=== PATIENT | female | born 1970 | race Caucasian/White ===

== ENCOUNTER → 2016-12-27 | Outpatient (CLI) | payer MEDICARE, OTHER ==
[~2016-12-27] MED LIST: ACETAMINOPHEN325 MG PO; BENADRYL PO; BENADRYL25 M1 PO; COUMADIN5 MG PO; COUMADIN6 MG PO; HYDROCODON-ACE1 EAC5 PO; LITHIUM CARBON300 M1 PO; LORTAB 7.5-5001 TAB PO; LOVENOX SUBQ; NICOTINE T1 PATCH .2 TOP; NO MEDICATIONS; PERCOCET10 PO; SENNA S TABLET1 TAB PO; VANCOMYCIN1.25 GM/21 IV; VANCOMYCIN1.25 GM/25 IV; XANAX0.5 MG PO; ZANTAC PO
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
[2016-12-27 12:04] LABS: HEMATOCRIT 46.8 % (35.0-45.0); HEMOGLOBIN 14.9 gm/dL (12.0-16.0); MEAN CELL VOLUME 81.4 FL (83-96); MEAN CORPUSCULAR HGB CONC 31.9 g/dL (30-36); MEAN PLATELET VOLUME 7.5 FL (6.5-11.5); RED BLOOD COUNT 5.75 X10e (3.90-5.30); RED CELL DISTRIBUTION WIDTH 14.4 % (11.0-15.5); WHITE BLOOD COUNT 6.6 X10e3 (4.0-10.5)
[2016-12-27 12:06] LABS: URINE APPEARANCE CLEAR; URINE BILIRUBIN NEG (NEG); URINE BLOOD 1+ (NEG); URINE COLOR YELLOW; URINE GLUCOSE NEG (NEG); URINE KETONE NEG (NEG); URINE LEUKOCYTE ESTERASE NEG (NEG); URINE NITRATE NEG (NEG); URINE PROTEIN NEG (NEG); URINE SPECIFIC GRAVITY 1.004 (1.003-1.035); URINE UROBILINOGEN 0.2 MG/DL (NEG)
[2016-12-27 12:09] LABS: URINE BACTERIA AUWI NEG (NEGATIVE); URINE SQUAMOUS EPITHELIAL CELL NONE SEEN /[HPF]; UWBCS1 AUWI 0-2 (0-5)
[2016-12-27 12:16] LABS: CULTURE INDICATED? NO; URINE SOURCE CLEAN CATCH
[2016-12-27 12:21] LABS: INR 0.9; PROTHROMBIN TIME (PATIENT) 9.4 SECONDS (9.6-11.5)
[2016-12-27 12:38] LABS: ALBUMIN SERUM 3.8 g/dL (3.5-5.0); BILIRUBIN,TOTAL 0.3 mg/dL (0.2-2.0); BUN/CREATININE RATIO 14.28; CALCIUM SERUM 9.5 mg/dL (8.4-10.2); CREATININE SERUM 0.7 mg/dL (0.6-1.4); GLOM FILT RATE Estimated 103.2 mL/min (>60); POTASSIUM 4.4 mmol/L (3.5-5.1)
== END | disposition home or self-care (01) ==
LOC: CAMB 11:23
PROVIDERS: Orthopaedic Surgery
DX: Z01.812 Encounter for preprocedural laboratory examination (principal); M25.362 Other instability, left knee; M25.562 Pain in left knee; K21.9 Gastro-esophageal reflux disease without esophagitis; F31.9 Bipolar disorder, unspecified; F20.9 Schizophrenia, unspecified; Z86.14 Personal history of Methicillin resistant Staphylococcus aureus infection; Z79.82 Long term (current) use of aspirin; Z85.41 Personal history of malignant neoplasm of cervix uteri; Z90.710 Acquired absence of both cervix and uterus
CPT/HCPCS: 36415; 80053; 81003; 85027; 85610; 85652; 86140; 86850; 86900; 86901; 87070

== ENCOUNTER 2017-01-05 08:37 | Inpatient (IN) | payer MEDICARE, OTHER ==
--- NOTE | ~2017-01-05 | DS ---
Unit #: [id number] #: [id number] Patient: YOGESH PATHAK [id number] [facility] [address] [facility]. [place], [place] [address] [id number] I MR#: [id number] NAME: YOGESH PATHAK ROOM: 450 Age: 46 Sex: F Admission Date: 01/05/2017 : 1970 Discharge Date: 01/07/2017 Attending Physician: Aniket Huggins M.D. Referring Physician: Aniket Huggins M.D. Primary Care Physician: No Primary Care Physician DISCHARGE SUMMARY CONSULT PHYSICIAN HIPS for medical management. REASON FOR ADMISSION Left knee pain and instability. PROCEDURE Revision left total knee with frozen section. HOSPITAL COURSE The patient was admitted to [facility] with a history of pain and instability of the left knee. The patient had undergone the above procedure. The patient tolerated the procedure well with no complications. Today, her temperature is 98.3, blood pressure 129/72. Heart rate is 99 and regular, respirations 20. Her incision is healing well. Neurovascular exam is intact. She has 2+ pulses in her lower extremity. The plan will be to discharge her home today under the care of [facility]. DISPOSITION Home with home health. PERTINENT LABS Her PT was 15.9. INR was 1.5. Hemoglobin was 10.3. MEDICATIONS Per medication reconciliation list. She will be on her regular home medications. The addition will be Coumadin 2 mg today and then 7 mg daily. She will also get a dose of Lovenox prior to discharge. She will be hydrocodone for pain control. FOLLOWUP INSTRUCTIONS 1. The patient will be following up with Dr. Huggins on 02/15/2017. 2. The patient will participate in physical therapy including active, active assist, range of motion, strengthening, progressive ambulation, begin with a walker, progress to a cane as tolerated. 3. The patient will wear FREDY hose during the day and off at night. 4. The patient should not drive until seen by Dr. Huggins. Dictated by... Ramón Be P.A.-C- for Aniket Huggins M.D. Unit #: [id number] #: [id number] Patient: YOGESH PATHAK KF/bd TD: 01/07/2017 07:40 JOB #: [id number] DISCHARGE SUMMARY Page 1 of 1 X X DISCHARGE SUMMARY
--- NOTE | ~2017-01-05 | OR ---
Unit #: [id number] #: [id number] Patient: YOGESH PATHAK [id number] [address] [place], [place] [address] [id number] I MR#: [id number] NAME: YOGESH PATHAK ROOM: 450 Date of Procedure: 01/05/2017 Admission Date: 01/05/2017 Surgeon: Aniket Huggins M.D. : 1970 Attending Physician: Aniket Huggins M.D. Referring Physician: Aniket Huggins M.D. OPERATIVE REPORT PREOPERATIVE DIAGNOSIS Flexion instability, left knee. POSTOPERATIVE DIAGNOSIS Flexion instability, left knee. PROCEDURE PERFORMED Revision, left total knee. ASSISTANTS Bev Upton and Maggie Chavarria. ANESTHESIA Adductor canal block plus general. ESTIMATED BLOOD LOSS About 150 to 200 mL. DESCRIPTION OF PROCEDURE The patient was brought to the holding room, given appropriate IV antibiotics. She was then given an adductor canal block, brought back to the operating room, given general anesthetic. Tourniquet was placed around the left leg. Left leg was prepped and draped in a sterile fashion. Tourniquet was inflated to 250. The previous anterior skin incision was used. Subcu dissected away and a medial arthrotomy was performed. Patella was slid to the side. Clear fluid was encountered. This was cultured. After this was done, the patient then had the polyethylene removed from the previous tibial tray. The femoral component was removed using a 0.5-inch straight osteotome to loosen the bone-cement interface. After this was removed, the tibia was subluxed anteriorly and the tibial component was removed. We then removed any remaining cement from the tibial canal. We then reamed the tibia up to a 12 x 75. A conical reamer was used for the MBT sleeve. Broaches were used up to a 45 and then the tibia was sized at a 2.5. The femur was sized at a 3. The patient then had the reamers used up to a 14 x 75. The conical reamer was used for the [place] femoral sleeve and then the femur was re-cut, chamfer cuts, and the box cut for the TC3 size 3 femoral component. The trial femur was assembled and applied and then the knee was reduced, was found a 12.5 RP insert was the appropriate thickness. This patient then had the patella examined and it appeared that the patellar component was loose. This was removed and the patient then had the patella measured, cut smooth, and then the three drill holes were made for a size 35 Unit #: [id number] #: [id number] Patient: YOGESH PATHAK patella. All the components were opened. The knee was irrigated and dried and the patient then had the components assembled. Two packages of cement were mixed. The tibia was impacted first cementing under the tray only. Once again, it was a 2.5 tray on a 45 mm MBT sleeve with a 12 x 75 stem and the femur was impacted in the appropriate external rotation. Once again, it was a size 3 TC3 femur with a 14 x 75 stem, 5 degree offset bolt, and a 34 mm distally porous-coated sleeve. Finally, the patella was cemented into place. This was a size 35. After the cement was hardened, it was judged that the 12.5 insert was the appropriate thickness. This was opened and applied to the tibial tray. The knee was reduced and then the wound was irrigated with Betadine and bacitracin. The ropivacaine mixture was injected and then the knee was closed over a drain using 0 Ethibond in the arthrotomy, 0 and 2-0 Vicryl in the subcutaneous, and celestino in the skin. Sterile dressing was applied and the patient's general anesthetic reversed. research assistant professor, Bev Upton was present throughout the entire case. Dictated by... Kai Jaeger/melinda TD: 01/10/2017 22:10 JOB #: [id number] OPERATIVE REPORT Page 1 of 1 X Aniket Huggins MD X PROCEDURE OPERATIVE NOTE
[~2017-01-05 08:37] MED LIST changes: -COUMADIN5 MG PO; -PERCOCET10 PO; -VANCOMYCIN1.25 GM/21 IV; -VANCOMYCIN1.25 GM/25 IV
[2017-01-05 09:26] LABS: INR 0.9; PROTHROMBIN TIME (PATIENT) 9.7 SECONDS (9.6-11.5)
[2017-01-06 03:02] LABS: HEMATOCRIT 32.7 % (35.0-45.0); HEMOGLOBIN 10.5 gm/dL (12.0-16.0); MEAN CELL VOLUME 79.8 FL (83-96); MEAN CORPUSCULAR HEMOGLOBIN 25.6 PG (28-34); MEAN CORPUSCULAR HGB CONC 32.1 g/dL (30-36); MEAN PLATELET VOLUME 7.1 FL (6.5-11.5); RED BLOOD COUNT 4.1 X10e (3.90-5.30); RED CELL DISTRIBUTION WIDTH 14.4 % (11.0-15.5)
[2017-01-06 03:50] LABS: BUN/CREATININE RATIO 16.25; CALCIUM SERUM 8.4 mg/dL (8.4-10.2); CREATININE SERUM 0.8 mg/dL (0.6-1.4); GLOM FILT RATE Estimated 87.9 mL/min (>60); POTASSIUM 4.3 mmol/L (3.5-5.1)
[2017-01-06 15:02] LABS: HEMATOCRIT 31.5 % (35.0-45.0); HEMOGLOBIN 10.1 gm/dL (12.0-16.0); MEAN CELL VOLUME 80.8 FL (83-96); MEAN CORPUSCULAR HEMOGLOBIN 25.8 PG (28-34); MEAN CORPUSCULAR HGB CONC 31.9 g/dL (30-36); MEAN PLATELET VOLUME 7.4 FL (6.5-11.5); RED BLOOD COUNT 3.9 X10e (3.90-5.30); RED CELL DISTRIBUTION WIDTH 14.6 % (11.0-15.5); WHITE BLOOD COUNT 15.3 X10e3 (4.0-10.5)
[2017-01-07 04:07] LABS: INR 1.5; PROTHROMBIN TIME (PATIENT) 15.9 SECONDS (9.6-11.5)
[2017-01-07 04:11] LABS: HEMATOCRIT 31.7 % (35.0-45.0); HEMOGLOBIN 10.3 gm/dL (12.0-16.0)
[2017-01-07] MEDS ORDERED: HYDROCODON-ACE1 EAC5 PO (10:53)
[2017-01-07] MEDS ORDERED: COUMADIN5 MG PO (10:54)
== END 2017-01-07 11:56 | disposition home health service (06) | DRG 467 ==
LOC: CSUR 08:37 → CPACUOF 09:00 → C4B 17:08
PROVIDERS: Internal Medicine; Nurse Practitioner; Orthopaedic Surgery
PROC: 0SPD09Z Removal of Liner from Left Knee Joint, Open Approach (ICD-10-PCS; 2017-01-05)
PROC: 0SPD0JZ Removal of Synthetic Substitute from Left Knee Joint, Open Approach (ICD-10-PCS; 2017-01-05)
PROC: 0SUW09Z Supplement Left Knee Joint, Tibial Surface with Liner, Open Approach (ICD-10-PCS; 2017-01-05)
PROC: 0SRD0J9 Replacement of Left Knee Joint with Synthetic Substitute, Cemented, Open Approach (ICD-10-PCS; principal; 2017-01-05 10:30)
DX: T84.023A Instability of internal left knee prosthesis, initial encounter (principal); D62 Acute posthemorrhagic anemia; F20.9 Schizophrenia, unspecified; E04.9 Nontoxic goiter, unspecified; F41.9 Anxiety disorder, unspecified; K21.9 Gastro-esophageal reflux disease without esophagitis; K44.9 Diaphragmatic hernia without obstruction or gangrene; F17.210 Nicotine dependence, cigarettes, uncomplicated; Z90.49 Acquired absence of other specified parts of digestive tract; Z90.710 Acquired absence of both cervix and uterus; Z86.14 Personal history of Methicillin resistant Staphylococcus aureus infection; Z85.41 Personal history of malignant neoplasm of cervix uteri; G25.81 Restless legs syndrome; R73.9 Hyperglycemia, unspecified
CPT/HCPCS: 80048; 82947; 85014; 85018; 85027; 85610; 87070; 87075; 87205; 88300; 88305; 88312; 88331; 94760; 97110; 97116; 97163; 97530; C1713; C1776; G8978-GP; G8979-GP; J0131; J0171; J0690; J0735; J1100; J1170; J1200; J1650; J1885; J2250; J2405; J2795; J3010; J3370

== ENCOUNTER 2017-01-11 18:29 | Inpatient (IN) | payer MEDICARE, OTHER ==
--- NOTE | ~2017-01-11 | CR169 ---
[facility] A Service of [facility] RADIOLOGY TEXT RESULTS PATIENT: YOGESH PATHAK LOCATION: [place] [address] : [birth year] UNIT #: [id number] AGE: [address]: Aniket Huggins MD SEX: F ORDER DR: [id number] [facility] [address] [place], [place] [address] [id number] I MR#: [id number] Acc #: [id number] NAME: YOGESH PATHAK. : 1970 SEX: F STUDY DATE/TIME: 01/11/2017 17:17 UNIT: [facility] ROOM: [facility] STUDY DESCRIPTION: CR Knee 2 Views Lt Attending Physician: Aniket Huggins M.D. Ordering Physician: [facility] MEDICAL IMAGING REPORT This report is preliminary unless electronic signature is present EXAM Left knee 01/11/2017 INDICATIONS 46-year-old female with pain and swelling of the left knee. Symptoms began 6 days ago. History of left knee surgery. TECHNIQUE 2 views of the left knee compared with 11/13/2012. FINDINGS Postop changes of total left knee replacement are present. Surgical hardware appears intact. There is prepatellar soft tissue swelling. There is a moderate-sized joint effusion which is nonspecific. This may reflect postoperative change. Infection also a differential consideration in the appropriate clinical context. Nonspecific calcifications are present about the medial and lateral knee joint spaces. No acute fracture. IMPRESSION 1. Total left knee replacement and evidence of recent surgical intervention. Soft tissue swelling and a nonspecific joint effusion. 2. No acute fracture. 3. If there is concern for infection, bone scan could be performed for further assessment. Dictated by... Dean Campos M.D. THIS IS AN ELECTRONICALLY VERIFIED REPORT Dean Campos M.D. at 01/11/2017 10:51 PM [facility] A Service of [facility] RADIOLOGY TEXT RESULTS PATIENT: YOGESH PATHAK LOCATION: [place] [address] : [birth year] UNIT #: [id number] AGE: [address]: Aniket Huggins MD SEX: F ORDER DR: PEPE/eva TD: 01/11/2017 22:10 JOB #: [id number] MEDICAL IMAGING REPORT Page 1 of 1 COPY
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
--- NOTE | ~2017-01-11 | EKG ---
PATIENT: YOGESH PATHAK UNIT #: [id number] Ventricular Rate: 85 BPM Atrial Rate: 85 BPM P-R Interval: 180 ms QRS Duration: 88 ms Q-T Interval: 350 ms QTC Calculation(Bezet): 416 ms P [place]: 40 degrees Calculated R [place]: 49 degrees Calculated T [place]: 18 degrees Diagnosis Line: Normal sinus rhythm Diagnosis Line: Normal ECG Diagnosis Line: When compared with ECG of 01-OCT-2016 13:26, Diagnosis Line: No significant change was found Diagnosis Line: Confirmed by REJI CARRILLO MD ([id number]) on 01/12/2017 Diagnosis Line: 10:40:22 PM INTERPRETING MD: LORENA SOUSA
--- NOTE | ~2017-01-11 | CO ---
Unit #: [id number] #: [id number] Patient: YOGESH PATHAK [id number] [address] [address] [id number] I MR#: [id number] NAME: YOGESH PATHAK ROOM: 475 Age: 46 Sex: F Admission Date: 01/12/2017 : 1970 Attending Physician: Aniket Huggins M.D. Primary Care Physician: Primary Care Physician No Consultation Date: 01/14/2017 CONSULTATION REPORT REASON FOR CONSULTATION Followup. DISCUSSION Ms. Parrish is a 46-year-old female, seen in room 475, bed 1 on 01/14/2017 at [facility]. The patient was calm, cooperative, compliant with medication. The patient still feeling sad, depressed, anxious, but denied any suicidal or homicidal ideation. Denied any psychotic symptom. Reports medication is helping her. The patient's vital signs; temperature 98.7, pulse 89, respirations 20, blood pressure 105/85, oxygen saturation 97%. MENTAL STATUS EXAMINATION General appearance, the patient dressed casually in hospital attire, sitting comfortably in chair, talking on the phone. The patient's attention span and concentration, fair. Speech, regular rate and coherent. Oriented in time, place, and person. Mood and affect, sad and dysphoric. Thought process was coherent. Thought content, the patient denied any thoughts of harming self or others. Denied any hallucination. Recent and remote memory, fair. Language, intact. Fund of knowledge, fair. Insight and judgment, fair to slightly impaired. DIAGNOSES 1. Major depressive disorder, recurrent, severe, F33.2. 2. Anxiety disorder, not otherwise specified, F40.01. ASSESSMENT AND PLAN 1. Supportive psychotherapy and psychoeducation provided to the patient. 2. Educated about benefits and side effects of medication and course and prognosis of illness. The patient's Ativan was switched to Xanax 1 mg t.i.d. If needed, consider further adjustment of medication. Please feel free to call if any questions, telephone #[phone]. Dictated by... Cristiano Millard M.D. KEVIN/melinda TD: 01/14/2017 23:29 JOB #: [id number] Unit #: [id number] #: [id number] Patient: YOGESH PATHAK CONSULTATION REPORT Page 1 of 1 X Cristiano Millard MD CONSULTATION REPORT
--- NOTE | ~2017-01-11 | DS ---
Unit #: [id number] #: [id number] Patient: YOGESH PATHAK [id number] [address] [place], [place] [address] [id number] I MR#: [id number] NAME: YOGESH APTHAK ROOM: [facility] Age: 46 Sex: F Admission Date: 01/12/2017 : 1970 Discharge Date: 01/16/2017 Attending Physician: Aniket Huggins M.D. Primary Care Physician: No Primary Care Physician DISCHARGE SUMMARY ADMITTING DIAGNOSIS Possible infected left total knee. DISCHARGE DIAGNOSIS Possible infected left total knee. PROCEDURES IN THE HOSPITAL I and D with poly exchange and placement of PICC line. HOSPITAL COURSE The patient was admitted on 01/11 through the emergency room. She had reportedly had positive blood cultures but these cultures have subsequently been no growth. She was taken to the OR and her knee was incised and drained with a poly exchange. These cultures also have been negative but, because of the possibility of infection, she will be treated empirically for four weeks with IV vancomycin. She is afebrile today. Her INR is 1.5 yesterday. She is on 5 mg of Coumadin daily. Her hemoglobin yesterday was 10.1 with a normal white count. Her medications at home are routine home medicines plus Coumadin 5 mg daily and Percocet 10/325 mg. Her condition on discharge is improved and her disposition is to home. Dictated by... Kai Jaeger/sherrill TD: 01/17/2017 11:13 JOB #: [id number] DISCHARGE SUMMARY Page 1 of 1 X Aniket Huggins MD X DISCHARGE SUMMARY
--- NOTE | ~2017-01-11 | OR ---
Unit #: [id number] #: [id number] Patient: YOGESH PATHAK [id number] [address] [place], [place] [address] [id number] I MR#: [id number] NAME: YOGESH PATHAK ROOM: [facility] Date of Procedure: 01/12/2017 Admission Date: 01/12/2017 Surgeon: Aniket Huggins M.D. : 1970 Attending Physician: Aniket Huggins M.D. OPERATIVE REPORT PREOPERATIVE DIAGNOSIS Possible infected left total knee. POSTOPERATIVE DIAGNOSIS Hematoma, left knee. NURSE CHEMICAL DEPENDENCY Alex. ANESTHESIA General. ESTIMATED BLOOD LOSS About 100 mL. PROCEDURE PERFORMED Incision and drainage and poly exchange. DESCRIPTION OF PROCEDURE The patient was brought to the operating room, given a general anesthetic. Her previous celestino were removed. The patient has been feeling ill. She has positive blood cultures for gram-positive cocci. Her knee is warm and swollen, but her surgery is only a week to 10 days out. She was brought down to the operating room. She was already on IV vancomycin 1750 mg every 12 hours. She was then given a general anesthetic. The previous celestino were removed. The knee was prepped and draped. The old incision was opened. Subcutaneous dissected away and the joint was entered. Fluid was encountered, but it did not appear infected. It appeared to be a resolving hematoma. There was hematoma in the knee. This was evacuated. The knee was then debrided as completely as possible. The tibia subluxed anteriorly. The polyethylene removed. The knee was irrigated with Betadine and bacitracin and then a new poly which was a size 3 TC3 12.5 mm thick insert was positioned in the tray. The knee reduced. The tourniquet released. The drain positioned and then the wound was closed using 0 Vicryl in the arthrotomy, 0 and 2-0 Vicryl in the subcutaneous, and celestino in the skin. Sterile dressing applied and the patient's general anesthetic reversed. Dictated by... Aniket Huggins M.D. Unit #: [id number] #: [id number] Patient: YOGESH PATHAK DLP/modl TD: 01/13/2017 03:38 JOB #: [id number] OPERATIVE REPORT Page 1 of 1 X Aniket Huggins MD PROCEDURE OPERATIVE NOTE
--- NOTE | ~2017-01-11 | XA166 ---
[facility] A Service of [facility] RADIOLOGY TEXT RESULTS PATIENT: YOGESH PATHAK LOCATION: [facility] 475-01 : [birth year] UNIT #: [id number] AGE: [address]: Aniket Huggins MD SEX: F ORDER DR: [id number] [facility] [address] [facility] [place], [place] [address] [id number] I MR#: [id number] Acc #: [id number] NAME: YOGESH PATHAK. : 1970 SEX: F STUDY DATE/TIME: 01/12/2017 14:53 UNIT: [facility] ROOM: [facility] STUDY DESCRIPTION: XA PICC Line Placement WO Port Attending Physician: Aniket Huggins M.D. Ordering Physician: Slava Boone M.D. Primary Care Physician: No Primary Care Physician MEDICAL IMAGING REPORT This report is preliminary unless electronic signature is present EXAM PICC placement with ultrasound and fluoroscopic guidance. HISTORY Venous access needed for medications. TECHNIQUE The procedure was explained to the patient including risks, benefits and complications. Informed consent was obtained and a formal time-out procedure was utilized. Full barrier sterile technique was employed via standard protocol. Using full barrier sterile technique and following local anesthesia with 1% Xylocaine, a brachial vein was punctured above the elbow on the right with ultrasound guidance. Ultrasound was used to confirm vessel patency which was confirmed and permanent ultrasound images were recorded. An 0.018 guidewire was passed into the superior vena cava under fluoroscopic guidance. A dilator and sheath was placed over the wire. A 5-Slovak double-lumen PICC was measured to 39 cm, cut and deployed with the tip positioned at the cavoatrial junction. The line was secured in place with adhesive dressing and antibiotic patch. Total fluoroscopy time 0.1 minutes with a total dose of 2 mGy. IMPRESSION Successful placement of a 5-Slovak double-lumen PICC via the right brachial vein above the elbow with ultrasound and fluoroscopic guidance. The tip of the PICC is in good position at the cavoatrial junction. Dictated by... Soren L. Juan Pablo, M.D. THIS IS AN ELECTRONICALLY VERIFIED REPORT Soren Almeida M.D. at 01/13/2017 10:23 PM RLF/jt [facility] A Service of [facility] RADIOLOGY TEXT RESULTS PATIENT: YOGESH PATHAK LOCATION: [place] [address] : [birth year] UNIT #: [id number] AGE: [address]: Aniket Huggins MD SEX: F ORDER DR: TD: 01/12/2017 18:22 JOB #: [id number] MEDICAL IMAGING REPORT Page 1 of 1 COPY
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
--- NOTE | ~2017-01-11 | CO ---
Unit #: [id number] #: [id number] Patient: YOGESH BOOKER [id number] [address] [address] [id number] I MR#: [id number] NAME: YOGESH BOOKER ROOM: 475 Age: 46 Sex: F Admission Date: 01/12/2017 : 1970 Attending Physician: Aniket Huggins M.D. Primary Care Physician: Primary Care Physician No Consultation Date: 01/15/2017 CONSULTATION REPORT REASON FOR CONSULTATION Followup. DISCUSSION Ms. Yogesh Booker is a 46-year-old female, seen in room 475, bed [address] [facility] on 01/15/2017. The patient reported having trouble with sleep, anxiety, depression. Denied any suicidal or homicidal ideation. Compliant with the treatment. The patient's vital signs; temperature 98.0, pulse 93, respirations 16, blood pressure 105/64. The patient denied any other complaints. Compliant with medication. REVIEW OF SYSTEMS Complete review of systems is unremarkable. MENTAL STATUS EXAMINATION General appearance; the patient dressed casually, lying comfortably in bed. Attention span and concentration, fair. Speech; regular rate, coherent. Oriented in time, place, and person. Mood and affect; sad, depressed, anxious. Thought process, coherent. Thought content; the patient denied any thoughts of harming self or others. Denied any psychotic symptom. Recent and remote memory, fair. Language, intact. Fund of knowledge, fair. Insight and judgment, fair to poor. DIAGNOSES Major depressive disorder, recurrent, severe, F33.2; anxiety disorder, not otherwise specified, F40.01. ASSESSMENT AND PLAN 1. Supportive psychotherapy and psychoeducation provided to the patient. 2. Educated about benefits and side effects of medication and course and prognosis of illness. Advised to continue with Xanax 1 mg t.i.d. If needed, consider medication such as Remeron. Please feel free to call if any questions, telephone #[phone]. Dictated by... Kai Au/melinda TD: 01/16/2017 14:18 JOB #: [id number] Unit #: [id number] #: [id number] Patient: YOGESH BOOKER CONSULTATION REPORT Page 1 of 1 X Cristiano Millard MD CONSULTATION REPORT
[2017-01-11 17:22] LABS: BASOPHIL# 0.1 X10e3 (0-0.3); BASOPHIL% 0.6 % (0-2.5); EOSINOPHIL# 0.3 X10e3 (0-0.7); EOSINOPHIL% 2.7 % (0.0-7.0); HEMATOCRIT 34.8 % (35.0-45.0); HEMOGLOBIN 11.2 gm/dL (12.0-16.0); LYMPHOCYTE# 3.3 X10e3 (1.0-3.5); LYMPHOCYTE% 28.4 % (17.0-45.0); MEAN CELL VOLUME 80.3 FL (83-96); MEAN CORPUSCULAR HEMOGLOBIN 25.8 PG (28-34); MEAN CORPUSCULAR HGB CONC 32.1 g/dL (30-36); MEAN PLATELET VOLUME 7.2 FL (6.5-11.5); MONOCYTE# 0.8 X10e3 (0-1.0); MONOCYTE% 7.1 % (3.0-12.0); NEUTROPHIL# 7.1 X10e3 (1.5-7.1); NEUTROPHIL% 61.2 % (40-75); PLATELET COUNT 543 X10e3 (140-420); RED BLOOD COUNT 4.34 X10e (3.90-5.30); RED CELL DISTRIBUTION WIDTH 14.4 % (11.0-15.5); WHITE BLOOD COUNT 11.7 X10e3 (4.0-10.5)
[2017-01-11 17:29] LABS: DIFF IND NO
[2017-01-11 17:36] LABS: INR 2.1; PARTIAL THROMBOPLASTIN TIME 45.4 SECONDS (23.5-31.3); PROTHROMBIN TIME (PATIENT) 22.8 SECONDS (9.6-11.5)
[2017-01-11 17:49] LABS: BUN/CREATININE RATIO 18.33; CALCIUM SERUM 8.6 mg/dL (8.4-10.2); CREATININE SERUM 0.6 mg/dL (0.6-1.4); GLOM FILT RATE Estimated 108.5 mL/min (>60)
[~2017-01-11 18:29] MED LIST changes: +COUMADIN5 MG PO
[2017-01-12 07:18] LABS: BASOPHIL% 0.6 % (0-2.5); EOSINOPHIL# 0.3 X10e3 (0-0.7); EOSINOPHIL% 3.2 % (0.0-7.0); HEMATOCRIT 28.2 % (35.0-45.0); LYMPHOCYTE# 2.2 X10e3 (1.0-3.5); LYMPHOCYTE% 28.3 % (17.0-45.0); MEAN CELL VOLUME 80.2 FL (83-96); MEAN CORPUSCULAR HEMOGLOBIN 26.2 PG (28-34); MEAN CORPUSCULAR HGB CONC 32.6 g/dL (30-36); MEAN PLATELET VOLUME 6.9 FL (6.5-11.5); MONOCYTE# 0.6 X10e3 (0-1.0); NEUTROPHIL# 4.7 X10e3 (1.5-7.1); NEUTROPHIL% 59.9 % (40-75); PLATELET COUNT 401 X10e3 (140-420); RED BLOOD COUNT 3.51 X10e (3.90-5.30); RED CELL DISTRIBUTION WIDTH 14.3 % (11.0-15.5); WHITE BLOOD COUNT 7.8 X10e3 (4.0-10.5)
[2017-01-12 07:27] LABS: HEMOGLOBIN 9.2 gm/dL (12.0-16.0)
[2017-01-12 07:28] LABS: DIFF IND NO
[2017-01-12 07:38] LABS: INR 1.4; PARTIAL THROMBOPLASTIN TIME 32.8 SECONDS (23.5-31.3); PROTHROMBIN TIME (PATIENT) 14.7 SECONDS (9.6-11.5)
[2017-01-12 07:50] LABS: BILIRUBIN,TOTAL 0.5 mg/dL (0.2-2.0); CALCIUM SERUM 8.4 mg/dL (8.4-10.2); CREATININE SERUM 0.5 mg/dL (0.6-1.4); GLOM FILT RATE Estimated 115.3 mL/min (>60); POTASSIUM 4.2 mmol/L (3.5-5.1); PROTEIN TOTAL SERUM 6.3 g/dL (6.0-8.3)
[2017-01-13 03:51] LABS: HEMATOCRIT 28.5 % (35.0-45.0); HEMOGLOBIN 9.3 gm/dL (12.0-16.0); MEAN CELL VOLUME 79.7 FL (83-96); MEAN CORPUSCULAR HEMOGLOBIN 25.9 PG (28-34); MEAN CORPUSCULAR HGB CONC 32.5 g/dL (30-36); MEAN PLATELET VOLUME 7.1 FL (6.5-11.5); RED BLOOD COUNT 3.58 X10e (3.90-5.30); RED CELL DISTRIBUTION WIDTH 14.1 % (11.0-15.5); WHITE BLOOD COUNT 10.9 X10e3 (4.0-10.5)
[2017-01-13 03:58] LABS: INR 1.1; PROTHROMBIN TIME (PATIENT) 11.4 SECONDS (9.6-11.5)
[2017-01-13 04:10] LABS: CALCIUM SERUM 8.1 mg/dL (8.4-10.2); CREATININE SERUM 0.5 mg/dL (0.6-1.4); GLOM FILT RATE Estimated 115.3 mL/min (>60); MAGNESIUM 1.9 mg/dL (1.6-3.0); POTASSIUM 3.8 mmol/L (3.5-5.1)
[2017-01-14 03:44] LABS: BASOPHIL# 0.1 X10e3 (0-0.3); BASOPHIL% 0.6 % (0-2.5); EOSINOPHIL# 0.3 X10e3 (0-0.7); EOSINOPHIL% 2.7 % (0.0-7.0); HEMATOCRIT 28.7 % (35.0-45.0); HEMOGLOBIN 9.4 gm/dL (12.0-16.0); LYMPHOCYTE# 2.4 X10e3 (1.0-3.5); LYMPHOCYTE% 25.5 % (17.0-45.0); MEAN CELL VOLUME 80.7 FL (83-96); MEAN CORPUSCULAR HEMOGLOBIN 26.4 PG (28-34); MEAN CORPUSCULAR HGB CONC 32.7 g/dL (30-36); MONOCYTE# 1.3 X10e3 (0-1.0); MONOCYTE% 13.4 % (3.0-12.0); NEUTROPHIL# 5.5 X10e3 (1.5-7.1); NEUTROPHIL% 57.8 % (40-75); PLATELET COUNT 487 X10e3 (140-420); RED BLOOD COUNT 3.56 X10e (3.90-5.30); RED CELL DISTRIBUTION WIDTH 14.3 % (11.0-15.5); WHITE BLOOD COUNT 9.5 X10e3 (4.0-10.5)
[2017-01-14 03:47] LABS: DIFF IND NO
[2017-01-14 03:55] LABS: INR 1.1; PROTHROMBIN TIME (PATIENT) 12.1 SECONDS (9.6-11.5)
[2017-01-14 04:34] LABS: CALCIUM SERUM 8.3 mg/dL (8.4-10.2); CREATININE SERUM 0.5 mg/dL (0.6-1.4); GLOM FILT RATE Estimated 115.3 mL/min (>60); MAGNESIUM 2.2 mg/dL (1.6-3.0)
[2017-01-15 03:33] LABS: HEMATOCRIT 31.2 % (35.0-45.0); HEMOGLOBIN 10.1 gm/dL (12.0-16.0); MEAN CELL VOLUME 79.9 FL (83-96); MEAN CORPUSCULAR HEMOGLOBIN 25.7 PG (28-34); MEAN CORPUSCULAR HGB CONC 32.2 g/dL (30-36); MEAN PLATELET VOLUME 6.7 FL (6.5-11.5); RED BLOOD COUNT 3.91 X10e (3.90-5.30); WHITE BLOOD COUNT 9.9 X10e3 (4.0-10.5)
[2017-01-15 03:52] LABS: INR 1.5; PROTHROMBIN TIME (PATIENT) 15.8 SECONDS (9.6-11.5)
[2017-01-15 03:57] LABS: CALCIUM SERUM 8.3 mg/dL (8.4-10.2); CREATININE SERUM 0.5 mg/dL (0.6-1.4); GLOM FILT RATE Estimated 115.3 mL/min (>60); MAGNESIUM 2.2 mg/dL (1.6-3.0); POTASSIUM 4.1 mmol/L (3.5-5.1)
[2017-01-16] MEDS ORDERED: VANCOMYCIN1.25 GM/21 IV (13:36)
== END 2017-01-16 13:57 | disposition home health service (06) | DRG 908 ==
LOC: CED 18:29 → CEDOF 18:50 → C4C 01-12 14:20
PROVIDERS: Emergency Medicine; Internal Medicine; Nurse Practitioner; Orthopaedic Surgery
PROC: 0SPD09Z Removal of Liner from Left Knee Joint, Open Approach (ICD-10-PCS; 2017-01-12)
PROC: 0SUD09Z Supplement Left Knee Joint with Liner, Open Approach (ICD-10-PCS; 2017-01-12)
PROC: 02HV33Z Insertion of Infusion Device into Superior Vena Cava, Percutaneous Approach (ICD-10-PCS; 2017-01-12)
PROC: B518ZZA Fluoroscopy of Superior Vena Cava, Guidance (ICD-10-PCS; 2017-01-12)
PROC: 30243L1 Transfusion of Nonautologous Fresh Plasma into Central Vein, Percutaneous Approach (ICD-10-PCS; 2017-01-12)
PROC: 0SCD0ZZ Extirpation of Matter from Left Knee Joint, Open Approach (ICD-10-PCS; principal; 2017-01-12 14:30)
DX: M96.840 Postprocedural hematoma of a musculoskeletal structure following a musculoskeletal system procedure (principal); F33.2 Major depressive disorder, recurrent severe without psychotic features; F25.0 Schizoaffective disorder, bipolar type; E87.1 Hypo-osmolality and hyponatremia; D62 Acute posthemorrhagic anemia; Y83.8 Other surgical procedures as the cause of abnormal reaction of the patient, or of later complication, without mention of misadventure at the time of the procedure; F41.9 Anxiety disorder, unspecified; K21.9 Gastro-esophageal reflux disease without esophagitis; G25.81 Restless legs syndrome; Z96.653 Presence of artificial knee joint, bilateral; Z90.49 Acquired absence of other specified parts of digestive tract; Z90.710 Acquired absence of both cervix and uterus; F17.210 Nicotine dependence, cigarettes, uncomplicated; Z91.14 Patient's other noncompliance with medication regimen; Z88.5 Allergy status to narcotic agent; Z88.6 Allergy status to analgesic agent; Z86.14 Personal history of Methicillin resistant Staphylococcus aureus infection
CPT/HCPCS: 36415; 73560; 76937; 77001; 80048; 80053; 80202; 82947; 83605; 83735; 84132; 85025; 85027; 85610; 85652; 85730; 86140; 86850; 86900; 86901; 87040; 87070; 87075; 87205; 93005; 94760; 97110; 97116; 97162; 97530; 99285; C1751; C1769; C1776; C9113; G8978-GP; G8979-GP; J0330; J0696; J1170; J1650; J2250; J2370; J2405; J2543; J3010; J3370; J3430; P9059

== ENCOUNTER 2017-01-31 12:11 | Emergency (ER) | payer MEDICARE, OTHER ==
--- NOTE | ~2017-01-31 | US140 ---
[facility] A Service of [facility] RADIOLOGY TEXT RESULTS PATIENT: YOGESH PATHAK LOCATION: [facility] : [birth year] UNIT #: [id number] AGE: [address]: Javi Selby MD SEX: F ORDER DR: [id number] [place] [id number] [facility]. [place], [place] [address] [id number] MR#: [id number] Acc #: [id number] NAME: YOGESH PATHAK. : 1970 SEX: F STUDY DATE/TIME: 01/31/2017 17:21 UNIT: [facility] ROOM: STUDY DESCRIPTION: UE Veins Unilat or Ltd Stdy Attending Physician: Javi Selby M.D. Ordering Physician: Javi Selby M.D. MEDICAL IMAGING REPORT This report is preliminary unless electronic signature is present EXAM Right upper extremity duplex venous ultrasound INDICATIONS Pain and swelling right arm for 3 weeks since placement of a line. Unable to get blood and/or flush line. TECHNIQUE Cummins-scale, color Doppler, spectral Doppler waveform imaging deep venous structures right upper extremities performed with compression and augmentation. COMPARISON STUDIES No comparison studies are available. FINDINGS The evaluated deep venous structures are patent and compressible without evidence of DVT. A catheter is noted within the right axillary vein. The visualized cephalic and basilic veins are also patent and compressible. IMPRESSION No evidence of DVT. Dictated by... Candido Pereira M.D. THIS IS AN ELECTRONICALLY VERIFIED REPORT Candido Pereira M.D. at 02/02/2017 7:22 AM ARS/pcl TD: 01/31/2017 23:10 [facility] A Service of [facility] RADIOLOGY TEXT RESULTS PATIENT: YOGESH PATHAK LOCATION: [facility] : [birth year] UNIT #: [id number] AGE: [address]: Javi Selby MD SEX: F ORDER DR: LANDY #: [id number] MEDICAL IMAGING REPORT Page 1 of 1 COPY
[~2017-01-31 12:11] MED LIST changes: +VANCOMYCIN1.25 GM/21 IV
[2017-01-31 14:43] LABS: BASOPHIL# 0.1 X10e3 (0-0.3); BASOPHIL% 0.7 % (0-2.5); EOSINOPHIL# 0.2 X10e3 (0-0.7); EOSINOPHIL% 2.3 % (0.0-7.0); HEMATOCRIT 34.9 % (35.0-45.0); HEMOGLOBIN 11.2 gm/dL (12.0-16.0); LYMPHOCYTE# 3.3 X10e3 (1.0-3.5); LYMPHOCYTE% 30.6 % (17.0-45.0); MEAN CELL VOLUME 77.2 FL (83-96); MEAN CORPUSCULAR HEMOGLOBIN 24.7 PG (28-34); MEAN PLATELET VOLUME 6.9 FL (6.5-11.5); MONOCYTE# 1.3 X10e3 (0-1.0); MONOCYTE% 11.7 % (3.0-12.0); NEUTROPHIL# 5.9 X10e3 (1.5-7.1); NEUTROPHIL% 54.7 % (40-75); PLATELET COUNT 504 X10e3 (140-420); RED BLOOD COUNT 4.52 X10e (3.90-5.30); RED CELL DISTRIBUTION WIDTH 14.7 % (11.0-15.5); WHITE BLOOD COUNT 10.8 X10e3 (4.0-10.5)
[2017-01-31 14:47] LABS: DIFF IND NO
[2017-01-31 15:04] LABS: INR 1.2; PARTIAL THROMBOPLASTIN TIME 31.5 SECONDS (23.5-31.3)
[2017-01-31 15:09] LABS: BUN/CREATININE RATIO 18.33; CALCIUM SERUM 9.1 mg/dL (8.4-10.2); CREATININE SERUM 0.6 mg/dL (0.6-1.4); GLOM FILT RATE Estimated 108.5 mL/min (>60); POTASSIUM 3.6 mmol/L (3.5-5.1)
[2017-01-31] MEDS ORDERED: VANCOMYCIN1.25 GM/25 IV (16:09)
[2017-01-31] MEDS ORDERED: COUMADIN5 MG PO (16:10)
== END 2017-01-31 21:35 | disposition home or self-care (01) ==
LOC: CED 12:11
PROVIDERS: Emergency Medicine
DX: M79.601 Pain in right arm (principal); Z45.2 Encounter for adjustment and management of vascular access device; F17.200 Nicotine dependence, unspecified, uncomplicated
CPT/HCPCS: 36415; 80048; 84703; 85025; 85610; 85730; 93971; 96372; 99284; J1642; J1650; J2997

== ENCOUNTER → 2017-04-06 | Outpatient (CLI) | payer MEDICARE, OTHER ==
[~2017-04-06] MED LIST changes: +PERCOCET10 PO; +VANCOMYCIN1.25 GM/25 IV
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
[2017-04-06 11:37] LABS: HEMATOCRIT 40.9 % (35.0-45.0); HEMOGLOBIN 12.7 gm/dL (12.0-16.0); MEAN CELL VOLUME 72.1 FL (83-96); MEAN CORPUSCULAR HEMOGLOBIN 22.4 PG (28-34); MEAN CORPUSCULAR HGB CONC 31.1 g/dL (30-36); MEAN PLATELET VOLUME 7.3 FL (6.5-11.5); RED BLOOD COUNT 5.68 X10e (3.90-5.30); RED CELL DISTRIBUTION WIDTH 17.4 % (11.0-15.5); WHITE BLOOD COUNT 9.2 X10e3 (4.0-10.5)
[2017-04-06 11:40] LABS: URINE APPEARANCE CLEAR; URINE BILIRUBIN NEG (NEG); URINE BLOOD TRACE (NEG); URINE COLOR YELLOW; URINE GLUCOSE NEG (NEG); URINE KETONE NEG (NEG); URINE LEUKOCYTE ESTERASE NEG (NEG); URINE NITRATE NEG (NEG); URINE PH 5.5 (5-8); URINE PROTEIN NEG (NEG); URINE SPECIFIC GRAVITY 1.019 (1.003-1.035); URINE UROBILINOGEN 0.2 MG/DL (NEG)
[2017-04-06 11:42] LABS: CULTURE INDICATED? YES; U HYALINE CASTS AUWI 0-2 /[LPF]; URBCS1 AUWI 0-2 /[HPF] (0-2); URINE BACTERIA AUWI 2+ (NEGATIVE); URINE SQUAMOUS EPITHELIAL CELL NONE SEEN /[HPF]
[2017-04-06 11:51] LABS: INR 0.9
[2017-04-06 11:59] LABS: URINE SOURCE CLEAN CATCH
[2017-04-06 12:28] LABS: ALBUMIN SERUM 3.9 g/dL (3.5-5.0); BILIRUBIN,TOTAL 0.1 mg/dL (0.2-2.0); BUN/CREATININE RATIO 12.85; CALCIUM SERUM 9.2 mg/dL (8.4-10.2); CREATININE SERUM 0.7 mg/dL (0.6-1.4); GLOM FILT RATE Estimated 103.2 mL/min (>60); POTASSIUM 4.3 mmol/L (3.5-5.1); PROTEIN TOTAL SERUM 7.3 g/dL (6.0-8.3)
== END | disposition home or self-care (01) ==
LOC: CAMB 10:51
PROVIDERS: Orthopaedic Surgery
DX: Z01.812 Encounter for preprocedural laboratory examination (principal); K21.9 Gastro-esophageal reflux disease without esophagitis; F41.8 Other specified anxiety disorders; E16.2 Hypoglycemia, unspecified; Z86.14 Personal history of Methicillin resistant Staphylococcus aureus infection; Z85.41 Personal history of malignant neoplasm of cervix uteri
CPT/HCPCS: 36415; 80053; 81003; 85027; 85610; 85652; 86140; 86850; 86900; 86901; 87070; 87086

== ENCOUNTER 2017-04-15 05:13 | Inpatient (IN) | payer MEDICARE, OTHER ==
[~2017-04-15] VITALS: Ht 165.1 cm; Wt 73.1 kg
--- NOTE | ~2017-04-15 | CO ---
Unit #: [id number] #: [id number] Patient: YOGESH PATHAK [id number] [address] [address] [id number] I MR#: [id number] NAME: YOGESH PATHAK ROOM: 472 Age: 46 Sex: F Admission Date: 04/15/2017 : 1970 Attending Physician: Aniket Huggins M.D. Primary Care Physician: Primary Care Physician No Consultation Date: 04/17/2017 CONSULTATION REPORT REASON FOR CONSULTATION Followup. DISCUSSION Ms. Parrish is a 46-year-old white female, seen in room 472, bed 1 on 04/17/2017. The patient reports making progress. Medication helped her able to sleep good, decrease in anxiety, agitation. Denied any suicidal or homicidal ideation. Denied any psychotic symptom. Reports pain is better. Vital signs; temperature 97.6, pulse 88, respirations 20, blood pressure 127/72, oxygen saturation 99%. REVIEW OF SYSTEMS Complete review of systems unremarkable. MENTAL STATUS EXAMINATION Vital signs; please see above. General appearance; the patient dressed in hospital attire, lying comfortably in a propped up position in bed, cooperative. Attention span and concentration, fair. Speech, regular rate and coherent. Oriented in time, place, and person. Mood and affect were sad, dysphoric, but able to smile. Thought process, coherent. Thought content, the patient denied any thoughts of harming self or others. Denied any hallucination. Recent and remote memory, fair. Language, intact. Fund of knowledge, fair. Insight and judgment, fair to slightly impaired. DIAGNOSES Psychiatric: Major depressive disorder, recurrent, severe, F33.2; anxiety disorder, not otherwise specified, F40.01. ASSESSMENT/PLAN 1. Supportive psychotherapy and psychoeducation provided to the patient. 2. Educated about benefits and side effects of medication and course and prognosis of illness. 3. Advised to continue with current combination of medication and make further adjustment of medication if needed. Please feel free to call if any questions telephone #[phone]. Dictated by... Cristiano Millard M.D. KEVIN/melinda TD: 04/17/2017 21:33 Unit #: [id number] #: [id number] Patient: YOGESH PATHAK JOB #: [id number] CONSULTATION REPORT Page 1 of 1 X Cristiano Millard MD CONSULTATION REPORT
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
--- NOTE | ~2017-04-15 | DS ---
Unit #: [id number] #: [id number] Patient: YOGESH PATHAK [id number] [facility]. [place], [place] [address] [id number] MR#: [id number] NAME: YOGESH PATHAK ROOM: 472 Age: 46 Sex: F Admission Date: 04/15/2017 : 1970 Discharge Date: 04/18/2017 Attending Physician: Aniket Huggins M.D. Primary Care Physician: No Primary Care Physician DISCHARGE SUMMARY ADMITTING PHYSICIAN Aniket Huggins M.D. CONSULTING PHYSICIAN HIPS for medical management. HOSPITAL COURSE The patient was admitted to [facility] with a history of instability of her left knee. Patient reports she is feeling much better today. Her temperature is 97.6, blood pressure 124/71, heart rate is 84 and regular, respirations 16. Her incision is healing well and neurovascular exam is intact, 3+ pulses in her lower extremity. The plan will be to send her to rehab later today. DISPOSITION To rehab. DISCHARGE MEDICATIONS Medications per med rec list. This will need to be gone over by HIPS because there are several added medications. DIAGNOSTIC STUDIES LABORATORY: Pertinent labs: INR is 2.8. Hemoglobin 10.2. FOLLOWUP INSTRUCTIONS The patient will need PT/INRs done on Tuesday and faxed to our office. The Coumadin will be held today. The patient will need skin celestino removed two weeks postoperative and Steri-Strips placed for one week. The patient to wear FREDY hose during the day and off at night. The patient should not shower until the day after celestino removed. The patient will begin physical including active, active assist range of motion and strengthening. Progressive ambulation to begin with a walker and progress to cane as tolerated. Dictated by... Ramón Be P.A.-C- for Kai Jaeger TD: 04/18/2017 09:15 Unit #: [id number] #: [id number] Patient: YOGESH PATHAK JOB #: [id number] DISCHARGE SUMMARY Page 1 of 1 X X DISCHARGE SUMMARY
--- NOTE | ~2017-04-15 | OR ---
Unit #: [id number] #: [id number] Patient: YOGESH PATHAK [id number] [address] [place], [place] [address] [id number] I MR#: [id number] NAME: YOGESH PATHAK. ROOM: [facility] Date of Procedure: 04/15/2017 Admission Date: 04/15/2017 Surgeon: Aniket Huggins M.D. : 1970 Attending Physician: Aniket Huggins M.D. OPERATIVE REPORT PREOPERATIVE DIAGNOSIS Instability of left total knee. POSTOPERATIVE DIAGNOSIS Instability of left total knee. PROCEDURE PERFORMED Revision of tibial insert left knee. SALESPERSON HEARING AIDS Alex. ANESTHESIA Adductor canal block plus general. ESTIMATED BLOOD LOSS 100 mL. INDICATIONS FOR PROCEDURE This is a 46-year-old lady, who has had a revision total knee in the past. She has continued to have difficulty with her knee giving out and she reports she is actually fallen few times. She is brought to the hospital for revision surgery for instability. DESCRIPTION OF PROCEDURE The patient was brought to the holding room, given vancomycin and Kefzol. She then had an adductor canal block performed, brought back to the operating room, given a general anesthetic. Tourniquet placed around the left thigh. The left leg was prepped and draped in a sterile fashion. After this was done, the tourniquet was inflated to 250. Straight anterior skin incision was made. Subcutaneous dissected away and a medial arthrotomy was performed. Clear fluid was encountered. This was cultured. The patella was slid to the side. We then removed previous TC3 insert, which was a size 3, 12.5 mm thick. We then went up to a 15 mm TC3 insert and with this in place, the knee seemed to have excellent stability in extension and flexion. She did lack about 5 degrees of extension. We then opened the new insert, positioned this in the tibia, reduced the knee. The knee was injected with 50 mL of ropivacaine mixture. The tourniquet was released. Hemostasis was obtained and then the wound was closed using 0 Ethibond in the arthrotomy, 0 and 2-0 Vicryl in the subcutaneous, and celestino in the skin. Sterile dressing applied. She was transferred to the recovery room. Unit #: [id number] #: [id number] Patient: YOGESH PATHAK Dictated by... Kai Jaeger/melinda TD: 04/15/2017 10:45 JOB #: [id number] OPERATIVE REPORT Page 1 of 1 X Aniket Huggins MD PROCEDURE OPERATIVE NOTE
--- NOTE | ~2017-04-15 | CO ---
Unit #: [id number] #: [id number] Patient: YOGESH PATHAK [id number] [address] [address] [id number] I MR#: [id number] NAME: YOGESH PATHAK ROOM: 472 Age: 46 Sex: F Admission Date: 04/15/2017 : 1970 Attending Physician: Aniket Huggins M.D. Primary Care Physician: Primary Care Physician No Consultation Date: 04/18/2017 CONSULTATION REPORT DISCUSSION Ms. Parrish is a 46-year-old female, seen in room 472, bed 1 on 04/18/2017. The patient was lying comfortably in bed. Slept good. Compliant with medication. Reports medication is helping her decrease in anxiety, but still in lot of pain. Recently had a knee replacement. The patient overall making progress. No side effects from medication. Denied any suicidal or homicidal ideation. Denied any psychotic symptom. The patient's vital signs; temperature 97.6, pulse 84, respirations 16, blood pressure 124/71, and oxygen saturation 99%. MENTAL STATUS EXAMINATION General appearance; the patient dressed in hospital attire, lying comfortably in bed. Seemed somewhat anxious and seems to be in pain. Attention span and concentration, poor. Speech, slow in volume. Oriented in place and self. Mood and affect, sad and dysphoric. Thought process, circumstantial. Thought content, guarded, paranoid, but denied any thoughts of harming self or others. Recent and remote memory, poor. Language, intact. Fund of knowledge, fair. Insight and judgment, fair to poor. DIAGNOSES Psychiatric: Major depressive disorder, recurrent, severe, F33.2; anxiety disorder, not otherwise specified, F40.01. ASSESSMENT AND PLAN 1. Supportive psychotherapy and psychoeducation provided to the patient. 2. Educated about benefits and side effects of medication and course and prognosis of illness. 3. Advised to continue with current medication and make further adjustment of medication if needed. Please feel free to call if any questions telephone #[phone]. Dictated by... Cristiano Millard M.D. KEIVN/melinda TD: 04/18/2017 16:24 JOB #: [id number] Unit #: [id number] #: [id number] Patient: YOGESH PATHAK CONSULTATION REPORT Page 1 of 1 X Cristiano Millard MD CONSULTATION REPORT
[~2017-04-15 05:13] MED LIST changes: -PERCOCET10 PO
[2017-04-15 06:40] LABS: URINE SOURCE CATH
[2017-04-15 06:48] LABS: URINE APPEARANCE CLEAR; URINE BILIRUBIN NEG (NEG); URINE BLOOD 1+ (NEG); URINE COLOR YELLOW; URINE GLUCOSE NEG (NEG); URINE KETONE NEG (NEG); URINE LEUKOCYTE ESTERASE NEG (NEG); URINE NITRATE NEG (NEG); URINE PROTEIN NEG (NEG); URINE SPECIFIC GRAVITY 1.014 (1.003-1.035); URINE UROBILINOGEN 0.2 MG/DL (NEG)
[2017-04-15 06:53] LABS: URBCS1 AUWI 0-2 /[HPF] (0-2); URINE BACTERIA AUWI NEG (NEGATIVE); URINE SQUAMOUS EPITHELIAL CELL OCC /[HPF]; UWBCS1 AUWI 0-2 (0-5)
[2017-04-15 06:55] LABS: CULTURE INDICATED? NO
[2017-04-15 07:05] LABS: INR 0.9
[2017-04-15] MEDS ORDERED: PERCOCET10 PO (16:10)
[2017-04-16 03:19] LABS: HEMATOCRIT 34.6 % (35.0-45.0); HEMOGLOBIN 10.9 gm/dL (12.0-16.0)
[2017-04-16 03:33] LABS: INR 1.3; PROTHROMBIN TIME (PATIENT) 14.6 SECONDS (10.0-11.7)
[2017-04-16 03:45] LABS: CREATININE SERUM 0.8 mg/dL (0.6-1.4); GLOM FILT RATE Estimated 87.9 mL/min (>60); POTASSIUM 4.8 mmol/L (3.5-5.1)
[2017-04-17 03:36] LABS: BASOPHIL% 0.3 % (0-2.5); EOSINOPHIL% 0.3 % (0.0-7.0); HEMATOCRIT 32.8 % (35.0-45.0); HEMOGLOBIN 10.2 gm/dL (12.0-16.0); LYMPHOCYTE# 2.1 X10e3 (1.0-3.5); LYMPHOCYTE% 14.5 % (17.0-45.0); MEAN CELL VOLUME 72.3 FL (83-96); MEAN CORPUSCULAR HEMOGLOBIN 22.5 PG (28-34); MEAN CORPUSCULAR HGB CONC 31.2 g/dL (30-36); MEAN PLATELET VOLUME 7.8 FL (6.5-11.5); MONOCYTE# 1.2 X10e3 (0-1.0); MONOCYTE% 8.1 % (3.0-12.0); NEUTROPHIL# 11.2 X10e3 (1.5-7.1); NEUTROPHIL% 76.8 % (40-75); PLATELET COUNT 355 X10e3 (140-420); RED BLOOD COUNT 4.54 X10e (3.90-5.30); RED CELL DISTRIBUTION WIDTH 18.5 % (11.0-15.5); WHITE BLOOD COUNT 14.6 X10e3 (4.0-10.5)
[2017-04-17 03:38] LABS: DIFF IND NO
[2017-04-17 03:49] LABS: INR 2.6
[2017-04-17 03:51] LABS: PROTHROMBIN TIME (PATIENT) 28.8 SECONDS (10.0-11.7)
[2017-04-17 03:59] LABS: ALBUMIN SERUM 3.4 g/dL (3.5-5.0); BILIRUBIN,TOTAL 0.3 mg/dL (0.2-2.0); BUN/CREATININE RATIO 14.28; CALCIUM SERUM 8.5 mg/dL (8.4-10.2); CREATININE SERUM 0.7 mg/dL (0.6-1.4); GLOM FILT RATE Estimated 103.2 mL/min (>60); POTASSIUM 4.8 mmol/L (3.5-5.1); PROTEIN TOTAL SERUM 6.5 g/dL (6.0-8.3)
[2017-04-18 03:32] LABS: INR 2.8
== END 2017-04-18 16:15 | DRG 467 ==
LOC: CSUR 05:13 → C4C 08:48 → CPACUOF 08:48 → CSUR 08:52 → CPACUOF 11:14 → C4B 11:14 → C4C 04-17 05:21
PROVIDERS: Family Medicine; Nurse Practitioner; Orthopaedic Surgery
PROC: 0SRW0JZ Replacement of Left Knee Joint, Tibial Surface with Synthetic Substitute, Open Approach (ICD-10-PCS; 2017-04-15)
PROC: 0SPW0JZ Removal of Synthetic Substitute from Left Knee Joint, Tibial Surface, Open Approach (ICD-10-PCS; principal; 2017-04-15 07:30)
PROC: 05HB33Z Insertion of Infusion Device into Right Basilic Vein, Percutaneous Approach (ICD-10-PCS; 2017-04-16)
DX: Z47.33 Aftercare following explantation of knee joint prosthesis (principal); F33.2 Major depressive disorder, recurrent severe without psychotic features; F25.0 Schizoaffective disorder, bipolar type; T84.89XA Other specified complication of internal orthopedic prosthetic devices, implants and grafts, initial encounter; F41.9 Anxiety disorder, unspecified; K21.9 Gastro-esophageal reflux disease without esophagitis; Z72.0 Tobacco use; G25.81 Restless legs syndrome; Z85.41 Personal history of malignant neoplasm of cervix uteri; Z86.14 Personal history of Methicillin resistant Staphylococcus aureus infection; Z90.49 Acquired absence of other specified parts of digestive tract; Z90.710 Acquired absence of both cervix and uterus; Y79.2 Prosthetic and other implants, materials and accessory orthopedic devices associated with adverse incidents
CPT/HCPCS: 80048; 80053; 81003; 83735; 85014; 85018; 85025; 85610; 87070; 87075; 87205; 94760; 97110; 97116; 97161; 97530; C1776; G8978-GP; G8979-GP; G8980-GP; J0131; J0171; J0330; J0690; J0735; J1100; J1170; J1200; J1650; J1885; J2250; J2370; J2405; J2710; J2795; J3010; J3370